=== PATIENT | female | born 1970 | race African-American/Black ===

== ENCOUNTER 2017-03-17 21:52 | Inpatient (IN) | payer MEDICAID, OTHER ==
[~2017-03-17] VITALS: Ht 162.6 cm; Wt 72.6 kg
[2017-03-17] MEDS ORDERED: ONDANSETRON HCL 4MG/2ML VIAL IV STA (22:51)
[2017-03-17] MEDS ORDERED: SODIUM CHLORIDE 0.9% 1,000 ML IV ONE ×2 (22:51→23:49)
[2017-03-17] MEDS ORDERED: KEPP500 PO (23:09)
[2017-03-17] MEDS ORDERED: LAMO50TA2 PO (23:09)
[2017-03-17] MEDS ORDERED: LORA0.5T2 PO (23:09)
[2017-03-17] MEDS ORDERED: PROP10TA10 PO (23:09)
[2017-03-17] MEDS ORDERED: CYCL10TA7 PO (23:10)
[2017-03-17 23:34] LABS: BG BASE EXCESS -3.5 mmol/L (-2.0-2.0); BG CARBOXYHEMOGLOBIN 0.3 % (0.5-1.5); BG DEOXYHEMOGLOBIN 9.4 % (0.0-5.0); BG FRACTION INSPIRED OXYGEN 21; BG HCO3 ACT 24.3 mmol/L (22.0-26.0); BG METHEMOGLOBIN 0.3 % (0.0-1.5); BG OXYGEN SATURATION 90.5 % (92.0-98.5); BG PCO2 57.7 mmHg (35.0-45.0); BG PH 7.243 (7.350-7.450); BG PO2 69.8 mmHg (75.0-100.0); BG SAMPLE SITE RIGHT BRACHIAL; BG TOTAL HEMOGLOBIN 11.2 g/dL (12.0-18.0); BG VENT MODE ROOM AIR
[2017-03-17 23:35] LABS: BASOPHILS % 1.1 % (0.0-2.0); EOSINOPHILS % 4.4 % (0.0-5.0); HEMATOCRIT. 32.5 % (36.0-48.0); HEMOGLOBIN. 10.5 g/dL (12.0-16.0); LYMPHOCYTES % 23.7 % (20.0-50.0); MEAN CORPUSCULAR VOLUME 86.3 fL (81.0-99.0); MEAN PLATELET VOLUME 11.7 fl (7.4-10.4); NEUTROPHILS % 64.8 % (40.0-76.0); PLATELET 160 x1000/uL (130-400); RED BLOOD CELL COUNT 3.76 mill/uL (4.2-5.4); RED CELL DISTRIBUTION WIDTH 16.4 % (11.6-14.6)
[2017-03-17 23:40] LABS: PROTHROMBIN TIME 10.5 sec (9.4-11.6)
[2017-03-17 23:42] LABS: CARBON DIOXIDE 26 mEq/L (21-32); CHLORIDE 110 mEq/L (98-107); ETHANOL BLOOD < 10 mg/dL; TROPONIN I < 0.02 ng/mL (0.00-0.04)
[2017-03-17 23:46] LABS: PHENOBARBITAL 20.8 ug/mL (15.0-40.0)
[2017-03-17 23:52] LABS: AMMONIA 24 uMol/L (<32)
[2017-03-17 23:58] LABS: CLARITY URINE CLEAR (CLEAR); COLOR URINE YELLOW (YELLOW); GLUCOSE URINE NEGATIVE (NEGATIVE); KETONES URINE NEGATIVE (NEGATIVE); LEUKOCYTE ESTERASE URINE NEGATIVE (NEGATIVE); NITRITE URINE NEGATIVE (NEGATIVE); OCCULT BLOOD URINE NEGATIVE (NEGATIVE); PH URINE 6.5 (4.5-8.0); PROTEIN URINE NEGATIVE (NEGATIVE); SPECIFIC GRAVITY URINE 1.012 (1.005-1.030); UROBILINOGEN URINE 0.2 E.U./dL (0.2-1.0)
[2017-03-18] VITALS (40 sets, daily range): BP systolic 90–151; BP diastolic 42–115
[2017-03-18 00:15] LABS: *AMPHETAMINES SCREEN URINE NEGATIVE (NEGATIVE); *COCAINE SCREEN URINE NEGATIVE (NEGATIVE); CANNABINOID URINE SCREEN NEGATIVE (NEGATIVE); METHADONE URINE SCREEN NEGATIVE (NEGATIVE); PHENCYCLIDINE URINE SCREEN NEGATIVE (NEGATIVE)
[2017-03-18] MEDS ORDERED: PHEN100T PO (00:19)
[2017-03-18] MEDS ORDERED: PHEN95TA44 PO (00:19)
[2017-03-18] MEDS ORDERED: TOPI25TA48 PO (00:19)
[2017-03-18] MEDS ORDERED: MORP15TA67 PO (00:19)
[2017-03-18] MEDS ORDERED: NOREPINEPHRINE 4 MG in DEXT 5% WATER 250 ML IV STA ×2 (00:23→00:39)
[2017-03-18 00:33] LABS: *BARBITURATES SCREEN URINE PRESUMTIVE POSITIVE (NEGATIVE); *BENZODIAZEPINES SCREEN URINE PRESUMTIVE POSITIVE (NEGATIVE); OPIATES URINE SCREEN PRESUMTIVE POSITIVE (NEGATIVE)
[2017-03-18] MEDS ORDERED: SODIUM CHLORIDE 0.9% 1,000 ML IV NR (00:36)
[2017-03-18] MEDS ORDERED: VANCOMYCIN 1 G PREMIX 200 ML IV NR (00:45)
[2017-03-18] MEDS ORDERED: PIPERACILLIN/TAZ 3.375G PREMIX 50 ML IV NR (00:45)
[2017-03-18] MEDS ORDERED: SUCCINYLCHOLINE CHLORIDE 200MG/10ML VIAL IV ONE ×2 (01:00→01:30)
[2017-03-18] MEDS ORDERED: ETOMIDATE 2MG/ML 10ML VIAL IV ONE ×2 (01:00→01:30)
[2017-03-18] MEDS ORDERED: PROPOFOL 10MG/ML 100ML 100 ML IV ONE (01:30)
[2017-03-18 02:38] LABS: BG BASE EXCESS -5.3 mmol/L (-2.0-2.0); BG CARBOXYHEMOGLOBIN 0.3 % (0.5-1.5); BG DEOXYHEMOGLOBIN 0.8 % (0.0-5.0); BG FRACTION INSPIRED OXYGEN 100; BG HCO3 ACT 18.8 mmol/L (22.0-26.0); BG METHEMOGLOBIN 0.3 % (0.0-1.5); BG OXYGEN SATURATION 99.2 % (92.0-98.5); BG OXYHEMOGLOBIN 98.6 % (94.0-97.0); BG PCO2 31.7 mmHg (35.0-45.0); BG PH 7.391 (7.350-7.450); BG SAMPLE SITE RIGHT RADIAL; BG TIDAL VOLUME(mL) 500 mL; BG TOTAL HEMOGLOBIN 10.7 g/dL (12.0-18.0); BG VENT MODE VENT - A/C; BG VENT RATE 14 set
[2017-03-18] MEDS ORDERED: LORAZEPAM 1MG TABLET PO PRN (05:00)
[2017-03-18] MEDS: PROPOFOL 10MG/ML 100ML 100 ML IV PRN ×2 (06:15→23:01)
[2017-03-18 07:35] LABS: CARBON DIOXIDE 22 mEq/L (21-32); CHLORIDE 116 mEq/L (98-107); CREATINE KINASE 85 IU/L (26-192); CREATINE KINASE MB FRACTION 0.8 ng/mL (0.5-3.6); TROPONIN I 0.09 ng/mL (0.00-0.04)
[2017-03-18 08:23] LABS: BG BASE EXCESS -5.8 mmol/L (-2.0-2.0); BG CARBOXYHEMOGLOBIN 0.3 % (0.5-1.5); BG DEOXYHEMOGLOBIN 0.8 % (0.0-5.0); BG FRACTION INSPIRED OXYGEN 60; BG METHEMOGLOBIN 0.4 % (0.0-1.5); BG OXYGEN SATURATION 99.2 % (92.0-98.5); BG OXYHEMOGLOBIN 98.5 % (94.0-97.0); BG PCO2 29.6 mmHg (35.0-45.0); BG PH 7.403 (7.350-7.450); BG PO2 228.5 mmHg (75.0-100.0); BG SAMPLE SITE RIGHT RADIAL; BG TIDAL VOLUME(mL) 500 mL; BG TOTAL HEMOGLOBIN 9.9 g/dL (12.0-18.0); BG VENT MODE VENT - A/C; BG VENT RATE 14 set
[2017-03-18] MEDS: PANTOPRAZOLE SODIUM 40 MG/VIAL IV SCH (08:27)
[2017-03-18] MEDS ORDERED: ONDANSETRON HCL 4MG/2ML VIAL IV PRN (09:30)
[2017-03-18] MEDS ORDERED: SODIUM CHLORIDE 0.9% 500 ML IV NR (09:45)
[2017-03-18] MEDS: ENOXAPARIN 40MG/0.4ML SYR SUBCUT SCH (09:58)
[2017-03-18 10:56] LABS: BASOPHILS % 0.7 % (0.0-2.0); EOSINOPHILS % 2.8 % (0.0-5.0); HEMATOCRIT. 37.6 % (36.0-48.0); HEMOGLOBIN. 11.9 g/dL (12.0-16.0); LYMPHOCYTES % 27.4 % (20.0-50.0); MEAN CORPUSCULAR HEMOGLOBIN 28.1 pg (28.0-32.0); MEAN CORPUSCULAR VOLUME 89.1 fL (81.0-99.0); MEAN PLATELET VOLUME 11.5 fl (7.4-10.4); MONOCYTES % 5.8 % (2.0-8.0); NEUTROPHILS % 63.3 % (40.0-76.0); PLATELET 137 x1000/uL (130-400); RED BLOOD CELL COUNT 4.22 mill/uL (4.2-5.4); RED CELL DISTRIBUTION WIDTH 17.1 % (11.6-14.6)
[2017-03-18] MEDS: METOPROLOL TARTRATE 25MG TABLET PO SCH ×2 (10:58→21:13)
[2017-03-18] MEDS: ASPIRIN 325MG TABLET PO SCH (10:58)
[2017-03-18] MEDS: LEVETIRACETAM 500 MG in SODIUM CHLORIDE 0.9% 100 ML IV SCH ×2 (10:59→23:43)
[2017-03-18 13:02] LABS: CHLORIDE 113 mEq/L (98-107)
[2017-03-18 13:06] LABS: AMMONIA 20 uMol/L (<32)
[2017-03-18 13:10] LABS: CARBON DIOXIDE 20 mEq/L (21-32); TOTAL IRON BINDING CAPACITY 261 ug/dL (250-450)
[2017-03-18 17:26] LABS: CREATINE KINASE MB FRACTION 1.6 ng/mL (0.5-3.6); TROPONIN I 0.17 ng/mL (0.00-0.04)
[2017-03-18 18:34] LABS: T4 FREE 0.79 ng/dL (0.76-1.46)
[2017-03-18 18:55] LABS: FOLIC ACID (FOLATE) SERUM 9.1 ng/mL (>5.38)
[2017-03-18 20:39] LABS: AMMONIA 91 uMol/L (<32)
[2017-03-19] VITALS (33 sets, daily range): BP systolic 84–150; BP diastolic 47–101
[2017-03-19 07:21] LABS: CREATINE KINASE MB FRACTION 2.2 ng/mL (0.5-3.6); TROPONIN I 0.17 ng/mL (0.00-0.04)
[2017-03-19 07:27] LABS: BASOPHILS % 0.4 % (0.0-2.0); EOSINOPHILS % 1.4 % (0.0-5.0); HEMATOCRIT. 38.2 % (36.0-48.0); LYMPHOCYTES % 9.2 % (20.0-50.0); MEAN CORPUSCULAR HEMOGLOBIN 27.6 pg (28.0-32.0); MEAN CORPUSCULAR VOLUME 87.8 fL (81.0-99.0); MONOCYTES % 6.1 % (2.0-8.0); NEUTROPHILS % 82.9 % (40.0-76.0); PLATELET 133 x1000/uL (130-400); RED BLOOD CELL COUNT 4.35 mill/uL (4.2-5.4); RED CELL DISTRIBUTION WIDTH 16.2 % (11.6-14.6)
[2017-03-19] MEDS ORDERED: MORPHINE SULFATE 4 MG/ML CPJ (NOT FOR IM USE) IV NR (08:45)
[2017-03-19] MEDS: ASPIRIN 325MG TABLET PO SCH (08:59)
[2017-03-19] MEDS: METOPROLOL TARTRATE 25MG TABLET PO SCH ×2 (08:59→21:00)
[2017-03-19] MEDS: ENOXAPARIN 40MG/0.4ML SYR SUBCUT SCH (09:00)
[2017-03-19] MEDS: PANTOPRAZOLE SODIUM 40 MG/VIAL IV SCH (09:10)
[2017-03-19 09:30] LABS: BG BASE EXCESS -4.4 mmol/L (-2.0-2.0); BG CARBOXYHEMOGLOBIN 0.3 % (0.5-1.5); BG CPAP (cmH2O) 0 cm(H2O); BG DEOXYHEMOGLOBIN 1.9 % (0.0-5.0); BG HCO3 ACT 20.2 mmol/L (22.0-26.0); BG METHEMOGLOBIN 0.6 % (0.0-1.5); BG OXYGEN SATURATION 98.1 % (92.0-98.5); BG OXYHEMOGLOBIN 97.2 % (94.0-97.0); BG PCO2 35.9 mmHg (35.0-45.0); BG PH 7.369 (7.350-7.450); BG PO2 128.8 mmHg (75.0-100.0); BG SAMPLE SITE RIGHT BRACHIAL; BG TOTAL HEMOGLOBIN 12.5 g/dL (12.0-18.0); BG VENT MODE VENT - CPAP
[2017-03-19 10:11] LABS: CARBON DIOXIDE 18 mEq/L (21-32); CHLORIDE 110 mEq/L (98-107)
[2017-03-19] MEDS: LEVETIRACETAM 500 MG in SODIUM CHLORIDE 0.9% 100 ML IV SCH ×2 (12:11→22:49)
[2017-03-19 14:03] LABS: AMMONIA 40 uMol/L (<32)
[2017-03-20] VITALS (26 sets, daily range): BP systolic 72–133; BP diastolic 41–88
[2017-03-20] MEDS: METOPROLOL TARTRATE 25MG TABLET PO SCH ×2 (09:00→21:08)
[2017-03-20] MEDS: PANTOPRAZOLE SODIUM 40 MG/VIAL IV SCH (09:18)
[2017-03-20] MEDS: ENOXAPARIN 40MG/0.4ML SYR SUBCUT SCH (09:19)
[2017-03-20] MEDS: ASPIRIN 325MG TABLET PO SCH (09:28)
[2017-03-20] MEDS: SODIUM CHLORIDE 0.9% 1,000 ML IV SCH ×2 (10:48→23:11)
[2017-03-20] MEDS: LEVETIRACETAM 500 MG in SODIUM CHLORIDE 0.9% 100 ML IV SCH ×2 (11:00→23:11)
[2017-03-20] MEDS: MORPHINE SULFATE 4 MG/ML CPJ (NOT FOR IM USE) IV PRN ×2 (16:01→21:10)
[2017-03-20] MEDS: IPRATROPIUM/ALBUTEROL 0.5-3(2.5)MG/3ML NEB INH PRN (22:09)
[2017-03-21] VITALS (26 sets, daily range): BP systolic 73–156; BP diastolic 48–102
[2017-03-21] MEDS: MORPHINE SULFATE 4 MG/ML CPJ (NOT FOR IM USE) IV PRN ×4 (02:20→20:24)
[2017-03-21] MEDS: IPRATROPIUM/ALBUTEROL 0.5-3(2.5)MG/3ML NEB INH PRN (02:21)
[2017-03-21 05:59] LABS: CARBON DIOXIDE 26 mEq/L (21-32); CHLORIDE 112 mEq/L (98-107)
[2017-03-21 06:25] LABS: BASOPHILS % 0.6 % (0.0-2.0); EOSINOPHILS % 2.9 % (0.0-5.0); HEMATOCRIT. 28.2 % (36.0-48.0); LYMPHOCYTES % 19.1 % (20.0-50.0); MEAN CORPUSCULAR VOLUME 83.7 fL (81.0-99.0); MEAN PLATELET VOLUME 10.3 fl (7.4-10.4); MONOCYTES % 8.3 % (2.0-8.0); NEUTROPHILS % 69.1 % (40.0-76.0); PLATELET 135 x1000/uL (130-400); RED BLOOD CELL COUNT 3.37 mill/uL (4.2-5.4); RED CELL DISTRIBUTION WIDTH 15.9 % (11.6-14.6)
[2017-03-21 06:29] LABS: HEMOGLOBIN. 9.4 g/dL (12.0-16.0)
[2017-03-21] MEDS: GUAIFENESIN 200MG/10ML SUGAR FREE UDC PO PRN ×3 (07:58→22:32)
[2017-03-21] MEDS: POTASSIUM CHLORIDE INJ 40 MEQ in DEXT 5% WATER 250 ML IV SCH ×2 (08:17→12:31)
[2017-03-21] MEDS: PANTOPRAZOLE SODIUM 40 MG/VIAL IV SCH (08:45)
[2017-03-21] MEDS: ASPIRIN 325MG TABLET PO SCH (08:46)
[2017-03-21] MEDS: METOPROLOL TARTRATE 25MG TABLET PO SCH ×2 (08:46→20:24)
[2017-03-21] MEDS: ENOXAPARIN 40MG/0.4ML SYR SUBCUT SCH (10:00)
[2017-03-21] MEDS: LEVETIRACETAM 500 MG in SODIUM CHLORIDE 0.9% 100 ML IV SCH ×2 (10:42→22:32)
[2017-03-21 11:09] LABS: PHOSPHORUS 3.6 mg/dL (2.5-4.9)
[2017-03-21] MEDS ORDERED: POTASSIUM CHLORIDE INJ 40 MEQ in DEXT 5% WATER 250 ML IV ONE (12:00)
[2017-03-21] MEDS: SODIUM CHLORIDE 0.9% 1,000 ML IV SCH (14:37)
[2017-03-21] MEDS: ZOLPIDEM TARTRATE 5MG TABLET PO PRN (22:32)
[2017-03-22] VITALS (20 sets, daily range): BP systolic 97–150; BP diastolic 62–101
[2017-03-22] MEDS: MORPHINE SULFATE 4 MG/ML CPJ (NOT FOR IM USE) IV PRN ×4 (04:22→23:31)
[2017-03-22 05:52] LABS: BASOPHILS % 0.7 % (0.0-2.0); EOSINOPHILS % 3.5 % (0.0-5.0); HEMATOCRIT. 28.2 % (36.0-48.0); HEMOGLOBIN. 9.6 g/dL (12.0-16.0); LYMPHOCYTES % 17.1 % (20.0-50.0); MEAN CORPUSCULAR HEMOGLOBIN 28.2 pg (28.0-32.0); MEAN CORPUSCULAR VOLUME 83.4 fL (81.0-99.0); MEAN PLATELET VOLUME 10.7 fl (7.4-10.4); MONOCYTES % 6.3 % (2.0-8.0); NEUTROPHILS % 72.4 % (40.0-76.0); PLATELET 152 x1000/uL (130-400); RED BLOOD CELL COUNT 3.39 mill/uL (4.2-5.4); RED CELL DISTRIBUTION WIDTH 15.6 % (11.6-14.6)
[2017-03-22 07:12] LABS: CARBON DIOXIDE 27 mEq/L (21-32); CHLORIDE 112 mEq/L (98-107)
[2017-03-22 08:08] LABS: TROPONIN I < 0.02 ng/mL (0.00-0.04)
[2017-03-22] MEDS: ASPIRIN 325MG TABLET PO SCH (09:40)
[2017-03-22] MEDS: PANTOPRAZOLE SODIUM 40 MG/VIAL IV SCH (09:40)
[2017-03-22] MEDS: LEVETIRACETAM 500 MG in SODIUM CHLORIDE 0.9% 100 ML IV SCH (11:00)
[2017-03-22] MEDS: ENOXAPARIN 40MG/0.4ML SYR SUBCUT SCH (11:01)
[2017-03-22] MEDS: GUAIFENESIN 200MG/10ML SUGAR FREE UDC PO PRN ×2 (12:29→18:36)
[2017-03-22] MEDS ORDERED: REGADENOSON 0.4 MG/5 ML IV NR (14:15)
[2017-03-22] MEDS: LISINOPRIL 5MG TABLET PO SCH (14:52)
[2017-03-22] MEDS ORDERED: MAGNESIUM 2 G PREMIX 50 ML IV ONE (16:00)
[2017-03-22] MEDS ORDERED: KCL 20MEQ/100ML PREMIX 100 ML IV ONE (16:00)
[2017-03-22] MEDS: DIPHENHYDRAMINE 50MG/ML VIAL IV PRN (16:28)
[2017-03-22] MEDS: LEVETIRACETAM 500MG/5ML CUP PO SCH (21:49)
[2017-03-23] VITALS: BP 132/73
[2017-03-23 03:35] VITALS: BP 121/85
[2017-03-23 06:10] LABS: BASOPHILS % 0.5 % (0.0-2.0); EOSINOPHILS % 2.3 % (0.0-5.0); HEMATOCRIT. 31.9 % (36.0-48.0); HEMOGLOBIN. 10.5 g/dL (12.0-16.0); LYMPHOCYTES % 16.3 % (20.0-50.0); MEAN CORPUSCULAR HEMOGLOBIN 27.4 pg (28.0-32.0); MEAN CORPUSCULAR VOLUME 83.5 fL (81.0-99.0); MEAN PLATELET VOLUME 10.4 fl (7.4-10.4); MONOCYTES % 5.9 % (2.0-8.0); PLATELET 193 x1000/uL (130-400); RED BLOOD CELL COUNT 3.82 mill/uL (4.2-5.4); RED CELL DISTRIBUTION WIDTH 15.5 % (11.6-14.6)
[2017-03-23 06:36] LABS: CARBON DIOXIDE 27 mEq/L (21-32); CHLORIDE 110 mEq/L (98-107)
[2017-03-23] MEDS: MORPHINE SULFATE 4 MG/ML CPJ (NOT FOR IM USE) IV PRN ×2 (06:52→12:29)
[2017-03-23 07:43] VITALS: BP 131/79
[2017-03-23] MEDS: LISINOPRIL 5MG TABLET PO SCH (08:54)
[2017-03-23] MEDS: LEVETIRACETAM 500MG/5ML CUP PO SCH ×2 (08:54→20:26)
[2017-03-23] MEDS: ASPIRIN 325MG TABLET PO SCH (08:54)
[2017-03-23] MEDS: ENOXAPARIN 40MG/0.4ML SYR SUBCUT SCH (09:00)
[2017-03-23] MEDS ORDERED: REGADENOSON 0.4 MG/5 ML IV ONE (11:19)
[2017-03-23 12:00] VITALS: BP 117/74
[2017-03-23 16:00] VITALS: BP 114/71
[2017-03-23 19:30] VITALS: BP 114/72
[2017-03-23] MEDS: GUAIFENESIN 200MG/10ML SUGAR FREE UDC PO PRN (20:26)
[2017-03-23] MEDS: ACETAMINOPHEN 325MG TABLET PO PRN (20:34)
[2017-03-23] MEDS: ZOLPIDEM TARTRATE 5MG TABLET PO PRN (22:49)
[2017-03-24] VITALS (7 sets, daily range): BP systolic 100–146; BP diastolic 67–87
[2017-03-24] MEDS: DIPHENHYDRAMINE 50MG/ML VIAL IV PRN ×3 (03:20→20:27)
[2017-03-24] MEDS: MORPHINE SULFATE 4 MG/ML CPJ (NOT FOR IM USE) IV PRN (03:21)
[2017-03-24] MEDS: GUAIFENESIN 200MG/10ML SUGAR FREE UDC PO PRN (07:25)
[2017-03-24] MEDS: LEVETIRACETAM 500MG/5ML CUP PO SCH ×2 (08:52→20:27)
[2017-03-24] MEDS: ASPIRIN 325MG TABLET PO SCH (08:53)
[2017-03-24] MEDS: LISINOPRIL 5MG TABLET PO SCH (08:53)
[2017-03-24] MEDS: ENOXAPARIN 40MG/0.4ML SYR SUBCUT SCH (09:27)
[2017-03-24] MEDS: ACETAMINOPHEN 325MG TABLET PO PRN (11:59)
[2017-03-24] MEDS: HYDROCODONE/ACETAMINOPHEN 5/325MG TABLET PO PRN (20:28)
[2017-03-24] MEDS: ZOLPIDEM TARTRATE 5MG TABLET PO PRN (22:00)
[2017-03-25] VITALS (8 sets, daily range): BP systolic 97–111; BP diastolic 55–77
[2017-03-25] MEDS: GUAIFENESIN 200MG/10ML SUGAR FREE UDC PO PRN (01:08)
[2017-03-25] MEDS: DIPHENHYDRAMINE 50MG/ML VIAL IV PRN ×3 (03:39→22:15)
[2017-03-25] MEDS: HYDROCODONE/ACETAMINOPHEN 5/325MG TABLET PO PRN ×2 (03:42→09:22)
[2017-03-25] MEDS: LISINOPRIL 5MG TABLET PO SCH (09:22)
[2017-03-25] MEDS: ASPIRIN 325MG TABLET PO SCH (09:22)
[2017-03-25] MEDS: LEVETIRACETAM 500MG/5ML CUP PO SCH ×2 (09:22→21:01)
[2017-03-25] MEDS: ENOXAPARIN 40MG/0.4ML SYR SUBCUT SCH (09:23)
[2017-03-25] MEDS ORDERED: LORAZEPAM 2MG/ML CPJ ONE (16:31)
[2017-03-25] MEDS ORDERED: LORAZEPAM 2MG/ML CPJ IV NR (16:45)
[2017-03-25] MEDS: LAMOTRIGINE 25MG TABLET PO SCH (18:26)
[2017-03-25] MEDS ORDERED: PHENOBARBITAL 100MG TABLET PO SCH (21:00)
[2017-03-25] MEDS: TOPIRAMATE 25MG TABLET PO SCH (21:02)
[2017-03-25] MEDS: PHENOBARBITAL 30 MG TABLET PO SCH (21:02)
[2017-03-26] VITALS (7 sets, daily range): BP systolic 95–117; BP diastolic 55–79
[2017-03-26] MEDS: HYDROCODONE/ACETAMINOPHEN 5/325MG TABLET PO PRN ×3 (00:08→22:24)
[2017-03-26] MEDS: LORAZEPAM 2MG/ML CPJ IV PRN ×2 (01:58→20:38)
[2017-03-26] MEDS: LISINOPRIL 5MG TABLET PO SCH (09:00)
[2017-03-26] MEDS: ASPIRIN 325MG TABLET PO SCH (09:05)
[2017-03-26] MEDS: ENOXAPARIN 40MG/0.4ML SYR SUBCUT SCH (09:05)
[2017-03-26] MEDS: LAMOTRIGINE 25MG TABLET PO SCH (09:05)
[2017-03-26] MEDS: LEVETIRACETAM 500MG/5ML CUP PO SCH ×2 (09:05→20:52)
[2017-03-26] MEDS: DIPHENHYDRAMINE 50MG/ML VIAL IV PRN ×3 (09:08→22:23)
[2017-03-26] MEDS: TOPIRAMATE 25MG TABLET PO SCH (20:52)
[2017-03-26] MEDS: PHENOBARBITAL 30 MG TABLET PO SCH (20:52)
[2017-03-27] VITALS (7 sets, daily range): BP systolic 99–116; BP diastolic 35–71
[2017-03-27] MEDS: ASPIRIN 325MG TABLET PO SCH (08:59)
[2017-03-27] MEDS: LEVETIRACETAM 500MG/5ML CUP PO SCH ×2 (08:59→20:32)
[2017-03-27] MEDS: LAMOTRIGINE 25MG TABLET PO SCH (08:59)
[2017-03-27] MEDS: LISINOPRIL 5MG TABLET PO SCH (09:00)
[2017-03-27] MEDS: DIPHENHYDRAMINE 50MG/ML VIAL IV PRN ×2 (09:05→20:47)
[2017-03-27] MEDS: HYDROCODONE/ACETAMINOPHEN 5/325MG TABLET PO PRN (12:04)
[2017-03-27] MEDS: ENOXAPARIN 40MG/0.4ML SYR SUBCUT SCH (12:04)
[2017-03-27] MEDS: LORAZEPAM 2MG/ML CPJ IV PRN (15:06)
[2017-03-27] MEDS: PHENOBARBITAL 30 MG TABLET PO SCH (20:33)
[2017-03-27] MEDS: TOPIRAMATE 25MG TABLET PO SCH (20:33)
[2017-03-28] VITALS (7 sets, daily range): BP systolic 86–127; BP diastolic 42–78
[2017-03-28] MEDS: LORAZEPAM 2MG/ML CPJ IV PRN (01:38)
[2017-03-28 07:49] LABS: BASOPHILS % 0.8 % (0.0-2.0); EOSINOPHILS % 1.7 % (0.0-5.0); HEMATOCRIT. 33.9 % (36.0-48.0); HEMOGLOBIN. 11.2 g/dL (12.0-16.0); LYMPHOCYTES % 20.4 % (20.0-50.0); MEAN CORPUSCULAR HEMOGLOBIN 27.8 pg (28.0-32.0); MEAN CORPUSCULAR VOLUME 84.6 fL (81.0-99.0); MONOCYTES % 4.7 % (2.0-8.0); NEUTROPHILS % 72.4 % (40.0-76.0); PLATELET 238 x1000/uL (130-400); RED BLOOD CELL COUNT 4.01 mill/uL (4.2-5.4); RED CELL DISTRIBUTION WIDTH 15.9 % (11.6-14.6)
[2017-03-28 08:18] LABS: CARBON DIOXIDE 27 mEq/L (21-32); CHLORIDE 108 mEq/L (98-107)
[2017-03-28] MEDS: LISINOPRIL 5MG TABLET PO SCH (09:00)
[2017-03-28] MEDS: DIPHENHYDRAMINE 50MG/ML VIAL IV PRN ×2 (09:22→18:40)
[2017-03-28] MEDS: LAMOTRIGINE 25MG TABLET PO SCH (09:22)
[2017-03-28] MEDS: ENOXAPARIN 40MG/0.4ML SYR SUBCUT SCH (09:22)
[2017-03-28] MEDS: ASPIRIN 325MG TABLET PO SCH (09:22)
[2017-03-28] MEDS: LEVETIRACETAM 500MG/5ML CUP PO SCH ×2 (09:22→20:43)
[2017-03-28] MEDS: HYDROCODONE/ACETAMINOPHEN 5/325MG TABLET PO PRN (10:22)
[2017-03-28] MEDS: MORPHINE SULFATE 15MG TABLET SR PO SCH ×2 (15:05→20:45)
[2017-03-28] MEDS: TOPIRAMATE 25MG TABLET PO SCH (20:43)
[2017-03-28] MEDS: PHENOBARBITAL 30 MG TABLET PO SCH (20:46)
[2017-03-29] VITALS (12 sets, daily range): BP systolic 72–133; BP diastolic 38–72
[2017-03-29] MEDS: LORAZEPAM 2MG/ML CPJ IV PRN ×2 (00:25→16:13)
[2017-03-29 07:30] LABS: BASOPHILS % 0.8 % (0.0-2.0); EOSINOPHILS % 1.9 % (0.0-5.0); HEMATOCRIT. 33.4 % (36.0-48.0); HEMOGLOBIN. 10.8 g/dL (12.0-16.0); LYMPHOCYTES % 22.4 % (20.0-50.0); MEAN CORPUSCULAR HEMOGLOBIN 27.6 pg (28.0-32.0); MEAN CORPUSCULAR VOLUME 85.1 fL (81.0-99.0); MEAN PLATELET VOLUME 10.1 fl (7.4-10.4); MONOCYTES % 5.4 % (2.0-8.0); NEUTROPHILS % 69.5 % (40.0-76.0); PLATELET 227 x1000/uL (130-400); RED BLOOD CELL COUNT 3.92 mill/uL (4.2-5.4); RED CELL DISTRIBUTION WIDTH 15.8 % (11.6-14.6)
[2017-03-29 08:11] LABS: CARBON DIOXIDE 30 mEq/L (21-32); CHLORIDE 107 mEq/L (98-107)
[2017-03-29] MEDS: ASPIRIN 325MG TABLET PO SCH (08:59)
[2017-03-29] MEDS: LEVETIRACETAM 500MG/5ML CUP PO SCH ×2 (08:59→21:47)
[2017-03-29] MEDS: LAMOTRIGINE 25MG TABLET PO SCH (08:59)
[2017-03-29] MEDS: LISINOPRIL 5MG TABLET PO SCH (09:00)
[2017-03-29] MEDS: MORPHINE SULFATE 15MG TABLET SR PO SCH ×2 (09:01→21:49)
[2017-03-29] MEDS: ENOXAPARIN 40MG/0.4ML SYR SUBCUT SCH (09:02)
[2017-03-29] MEDS ORDERED: POTASSIUM CHLORIDE 20MEQ TABLET SR PO SCH (14:30)
[2017-03-29] MEDS ORDERED: KEPP500 PO (16:40)
[2017-03-29] MEDS ORDERED: TOPA25 PO (16:40)
[2017-03-29] MEDS ORDERED: PHEN97.22 PO (16:40)
[2017-03-29] MEDS ORDERED: LAM25 PO (16:40)
[2017-03-29] MEDS: PHENOBARBITAL 30 MG TABLET PO SCH (21:47)
[2017-03-29] MEDS: TOPIRAMATE 25MG TABLET PO SCH (21:47)
== END 2017-03-29 23:35 | disposition home or self-care (01) | DRG 812 ==
LOC: ER 21:59 → CVICU 03-18 01:41 → EDBEDREQTM 03-18 02:18 → ENRESERV 03-18 03:38 → 5WST 03-22 22:10
PROVIDERS: ADMIT Internal Medicine; ATTEND Internal Medicine
PROC: 5A1945Z Respiratory Ventilation, 24-96 Consecutive Hours (ICD-10-PCS; principal; 2017-03-18)
PROC: 0BH17EZ Insertion of Endotracheal Airway into Trachea, Via Natural or Artificial Opening (ICD-10-PCS; 2017-03-18)
DX: T50.901A Poisoning by unspecified drugs, medicaments and biological substances, accidental (unintentional), initial encounter (principal); J96.01 Acute respiratory failure with hypoxia; G92 Toxic encephalopathy; J96.02 Acute respiratory failure with hypercapnia; I27.2 Other secondary pulmonary hypertension; I95.9 Hypotension, unspecified; E44.0 Moderate protein-calorie malnutrition; D50.9 Iron deficiency anemia, unspecified; F41.9 Anxiety disorder, unspecified; G40.909 Epilepsy, unspecified, not intractable, without status epilepticus; G43.909 Migraine, unspecified, not intractable, without status migrainosus; I44.0 Atrioventricular block, first degree; K59.00 Constipation, unspecified; G89.29 Other chronic pain; Z79.899 Other long term (current) drug therapy; Z87.11 Personal history of peptic ulcer disease; Y92.89 Other specified places as the place of occurrence of the external cause; Z88.8 Allergy status to other drugs, medicaments and biological substances
CPT/HCPCS: 31500; 36415; 36556; 36600; 51702; 70450; 70551; 71010; 78452; 80048; 80053; 80184; 80305; 80307; 80329; 81003; 82140; 82270; 82375; 82550; 82553; 82607; 82746; 82805; 82962; 83036; 83540; 83550; 83605; 83735; 84100; 84439; 84443; 84478; 84481; 84484; 85025; 85044; 85610; 86850; 86900; 86920; 87040; 87070; 87086; 92610; 93005; 93017; 93306; 93970; 94002; 94003; 94640; 94664; 96361; 96365; 96375; 97116; 97163; 99291; A9500; C1893; C9113; G0482; J0330; J1200; J1650; J1953; J2060; J2270; J2405; J2543; J2704; J2785; J3370; J3475; J3480; J3490; J7030; J7050; J7060; J7620; A4315